=== PATIENT | male | born 1955 | race Caucasian/White ===

== ENCOUNTER 2018-07-11 11:03 | Emergency (ER) | payer OTHER ==
[~2018-07-11] VITALS: Ht 203.2 cm; Wt 90.7 kg
--- NOTE | ~2018-07-11 | EKG ---
[place], [place] ELECTROCARDIOGRAM REPORT NAME: MAYANK DUMONT UNIT #: [id number] ROOM: DOCTOR: EPIPHANY DRAFT REPORT BIRTHDATE: [birth year] [facility] Test Date: 2018-07-11 Test Time: 12:31:46 Pat Name: MAYANK DUMONT Department: Room: Gender: M Analytical Scientist: : [id number] Requested By: QIANA MILLS Order Number: [id number] Reading MD: Lynette Reyes MD Measurements Intervals [place] Rate: 56 P: 28 VT: 168 QRS: 19 QRSD: 97 T: 37 QT: 428 QTc: 414 Interpretive Statements Sinus rhythm No previous ECG available for comparison Electronically Signed On 07-14-2018 10:00:00 PDT by Lynette Reyes MD CM:EKGRPT:ELECTROCARDIOGRAM REPORT 1231 1000 QIANA ZAIDI DRAFT REPORT QIANA DIXON
[2018-07-11 12:24] LABS: BILIRUBIN NEGATIVE (NEGATIVE); BLOOD NEGATIVE (NEGATIVE); CLARITY CLEAR (CLEAR); COLOR YELLOW (YELLOW); GLUCOSE NEGATIVE (NEGATIVE); KETONE NEGATIVE (NEGATIVE); LEUKO ESTERASE NEGATIVE (NEGATIVE); NITRITE NEGATIVE (NEGATIVE); SPECIFIC GRAVITY <= 1.005 (1.005-1.030); UROBILINOGEN 0.2 E.U./dl (0.2-1.0)
[2018-07-11 12:43] LABS: BASO % 0.4 % (0.0-1.0); EOS # 0.2 10*3/uL (0.0-0.4); EOS % 3.5 % (1.0-4.0); HEMATOCRIT 41.1 % (42.0-52.0); HEMOGLOBIN 14.2 g/dl (14.0-18.0); LYMPH # 2.5 10*3/uL (1.3-4.4); LYMPH % 36.8 % (27.0-41.0); MEAN CELL VOLUME 94.9 fl (80.0-94.0); MEAN CORPUSCULAR HGB 32.8 pg (27.0-31.0); MEAN CORPUSCULAR HGB CONC 34.5 g/dl (33.0-37.0); MEAN PLATELET VOLUME 9.9 fl (9.6-12.3); MONO # 0.4 10*3/uL (0.1-1.0); NEUT # 3.6 10*3/uL (2.3-7.9); PLATELET COUNT AUTOMATED 214 10*3/uL (130-400); RED BLOOD COUNT 4.33 10*6/uL (4.50-5.90); RED CELL DISTRI WIDTH 12.1 % (0-14.5); WHITE BLOOD COUNT 6.8 10*3/uL (4.8-10.8)
[2018-07-11 12:53] LABS: ACT PARTIAL THROMBO TIME 23.7 SECONDS (20.8-31.5); INTERNATIONAL NORM RATIO 0.9 (2.0-3.5)
[2018-07-11 13:01] LABS: ALBUMIN 3.7 gm/dl (3.1-4.5); ALKALINE PHOSPHATASE 58 U/L (45-117); BUN 15 mg/dl (7-24); CHLORIDE 108 mmol/L (98-107); CREATININE 0.79 mg/dL (0.70-1.30); LIPASE 65 U/L (73-393); SGOT/AST 20 IU/L (3-35); SGPT/ALT 34 U/L (12-78); SODIUM 137 mmol/L (136-145); TOTAL PROTEIN 7.4 gm/dL (6.4-8.2)
[2018-07-11 13:04] LABS: TROPONIN I < 0.015 ng/ml (<0.045)
[2018-07-11 13:29] LABS: EPITHELIAL CELLS 0-2
[2018-07-11] MEDS ORDERED: NORCO 5-325 TA1 EACH PO (17:02)
[2018-07-11] MEDS ORDERED: ROBAXIN500 M1 PO (17:02)
== END 2018-07-11 17:08 | disposition home or self-care (01) ==
LOC: ED 11:03
PROVIDERS: Physician Assistant
DX: M54.2 Cervicalgia (principal); R79.1 Abnormal coagulation profile